=== PATIENT | male | born 1995 | race Hispanic/Latino ===

== ENCOUNTER 2017-10-22 18:06 | Emergency (ER) | payer OTHER ==
--- NOTE | 2017-10-22 20:02 | ED PDOC ---
HPI: CCC, URI, Sore Throat Time Seen by Provider: 10/22/17 18:59 Chief Complaint (Nursing): Flu-like Symptoms Chief Complaint (Provider): Flu-like Symptoms History Per: Patient History/Exam Limitations: no limitations Onset/Duration Of Symptoms: Days (x2) Current Symptoms Are (Timing): Still Present Additional Complaint(s): 22 year old male who presents to the emergency department with a complaint of flu-like symptoms including cough, congestion, fever, shortness of breath, sore throat, bodyache and weakness ongoing since yesterday. Denied any vomiting, nausea, diarrhea, skin rash or recent travel. PMD: none provided Past Medical History Reviewed: Historical Data, Nursing Documentation, Vital Signs Vital Signs: Last Vital Signs Temp 100.4 F H 10/22/17 21:38 Pulse 88 10/22/17 21:38 Resp 16 10/22/17 21:00 BP 138/74 10/22/17 21:00 Pulse Ox 100 10/22/17 21:00 - Medical History PMH: Pneumonia Denies: No Chronic Diseases - Surgical History Surgical History: No Surg Hx - Family History Family History: States: Unknown Family Hx - Social History Current smoker - smoking cessation education provided: No Alcohol: None Drugs: Denies - Home Medications Home Medications: Ambulatory Orders Medication Instructions Recorded Ibuprofen [Motrin Tab] 600 mg PO QID PRN #20 tab 10/22/17 Oseltamivir Phosphate [Tamiflu] 75 mg PO BID #10 capsule 10/22/17 - Allergies Allergies/Adverse Reactions: Allergies Allergy/AdvReac Type Severity Reaction Status Date / Time sulfamethoxazole Allergy RASH Verified 10/22/17 19:01 [From Bactrim] trimethoprim [From Bactrim] Allergy RASH Verified 10/22/17 19:01 Review of Systems ROS Statement: Except As Marked, All Systems Reviewed And Found Negative Constitutional: Positive for: Fever, Weakness, Other (bodyache) ENT: Positive for: Nose Congestion, Throat Pain Respiratory: Positive for: Cough, Shortness of Breath Gastrointestinal: Negative for: Nausea, Vomiting, Diarrhea Skin: Negative for: Rash Physical Exam - Reviewed Nursing Documentation Reviewed: Yes Vital Signs Reviewed: Yes - Physical Exam Appears: Positive for: Well, Non-toxic, No Acute Distress ENT: Positive for: Pharyngeal Erythema (mild). Negative for: Normal ENT Inspection, Tonsillar Exudate Cardiovascular/Chest: Positive for: Regular Rate, Rhythm, Chest Non Tender Respiratory: Positive for: Normal Breath Sounds. Negative for: Decreased Breath Sounds, Wheezing, Respiratory Distress Gastrointestinal/Abdominal: Positive for: Normal Exam, Soft. Negative for: Tenderness Extremity: Positive for: Normal ROM (upper/lower). Negative for: Pedal Edema ( bilateral) Neurologic/Psych: Positive for: Alert (x3), manager learning II-XII (intact), Oriented - ECG O2 Sat by Pulse Oximetry: 98 (RA) Pulse Ox Interpretation: Normal Medical Decision Making Medical Decision Making: Initial Impression: Flu-like Symptoms Initial Plan: * CXR * Influenza A B * Rapid strep * Motrin 800mg PO * Throat culture CXR : NAD, as read by MACI Rapid flu positive Rapid strep negative On reevaluation, patient is laying comfortably in no acute distress. Patient has no additional complaints at this time. Patient noted to still have a fever, medicated with Tylenol by mouth. Diagnostic results discussed with the patient in great detail. Given a dose of tamiflu PO. Diagnosis influenza discussed with the patient, advised bed rest, drink plenty of fluids, Tylenol and Motrin for fever and Tamiflu prescription will be given. Advised to follow up with primary care physician in 1-2 days without fail. Advised to take medication as prescribed. Return to the emergency room at any time for any new or worsening symptoms. Patient states he fully agrees with and understands discharge instructions. States that he agrees with the plan and disposition. Verbalized and repeated discharge instructions and plan. I have given the patient opportunity to ask any additional questions. Scribe Attestation: Documented by Raine Magana, acting as a scribe for Jolene Colon PA-C. Provider Scribe Attestation: All medical record entries made by the Scribe were at my direction and personally dictated by me. I have reviewed the chart and agree that the record accurately reflects my personal performance of the history, physical exam, medical decision making, and the department course for this patient. I have also personally directed, reviewed, and agree with the discharge instructions and disposition. Disposition - Clinical Impression Clinical Impression: Influenza - Patient ED Disposition Is Patient to be Admitted: No Counseled Patient/Family Regarding: Studies Performed, Diagnosis, Need For Followup, Rx Given - Disposition Referrals: [facility] [Outside] Disposition: Routine/Home Disposition Time: 20:42 Condition: STABLE Additional Instructions: Thank you for letting us take care of you today. You were treated for influenza. The emergency medical care you received today was directed at your acute symptoms. If you were prescribed any medication, please fill it and take as directed. It may take several days for your symptoms to resolve. Return to the Emergency Department if your symptoms worsen, do not improve, or if you have any other problems. Please contact your doctor in 2 days for re-evaluation and follow up / or call one of the physicians/clinics you have been referred to that are listed on the Patient Visit Information form that is included in your discharge packet. Bring any paperwork you were given at discharge with you along with any medications you are taking to your follow up visit. Our treatment cannot replace ongoing medical care by a primary care provider (PCP) outside of the emergency department. Thank you for allowing the [facility] team to be part of your care today. If you had an X-Ray : A Radiologist will review the ED reading if any change in treatment is needed we will contact you. 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
[2017-10-22 20:28] LABS: INFLUENZA A B POS FOR INFLUENZA A (NEGATIVE)
[2017-10-22 21:02] VITALS: BP 138/74; PULSE 88; RESP 16
[2017-10-22 21:38] VITALS: TEMP 100.4
[2017-10-22 22:09] VITALS: O2SAT 98
--- NOTE | 2017-10-23 11:03 | RAD ---
HISTORY: cough COMPARISON: No prior. TECHNIQUE: Chest PA and lateral FINDINGS: LUNGS: No active pulmonary disease. PLEURA: No significant pleural effusion identified. No pneumothorax apparent. CARDIOVASCULAR: Normal. OSSEOUS STRUCTURES: No significant abnormalities. VISUALIZED UPPER ABDOMEN: Normal. OTHER FINDINGS: None. IMPRESSION: No active disease.
== END 2017-10-22 21:39 | disposition home or self-care (01) ==
LOC: H.ER 18:06
DX: J11.1 Influenza due to unidentified influenza virus with other respiratory manifestations (principal)